=== PATIENT | female | born 1990 | race Caucasian/White ===

== ENCOUNTER 2020-01-18 19:15 | Emergency (ER) | payer OTHER ==
[2020-01-18 19:25] VITALS: BP 111/70; PULSE 102; TEMP 97.2; BMI 27.1
[2020-01-18] MEDS ORDERED: KETOROLAC TROMETHAMINE 30 MG/1 ML VIAL IM ONE (20:04)
[2020-01-18] MEDS ORDERED: KETOROLAC TROMETHAMINE 30 MG/1 ML VIAL ONE (20:15)
[2020-01-18] MEDS ORDERED: LIDOCAINE 5% TOPICAL PATCH TP ONE (21:41)
[2020-01-18] MEDS ORDERED: LIDOCAINE PATCH REMOVAL MC SCH (22:00)
[2020-01-18] MEDS ORDERED: LIDOCAINE 5% TOPICAL PATCH ONE (22:15)
== END 2020-01-18 22:18 | disposition home or self-care (01) ==
LOC: JERFT 19:15
PROC: 3E0233Z Introduction of Anti-inflammatory into Muscle, Percutaneous Approach (ICD-10-PCS; principal; 2020-01-18)
DX: M54.5 Low back pain (principal)
CPT/HCPCS: 72100-TC-FY; 84703; 99284-25